=== PATIENT | male | born 2000 | race Caucasian/White ===

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

== ENCOUNTER 2023-04-07 00:43 | Emergency (ER) | payer OTHER ==
[~2023-04-07] VITALS: Ht 190.5 cm; Wt 83.9 kg
[2023-04-07] MEDS ORDERED: FAMOTIDINE 20 MG TABLET ONE (01:53)
[2023-04-07] MEDS ORDERED: EPINEPHRINE 1:10,000 1 MG/10 ML DISP.SYRIN ONE (01:53)
[2023-04-07] MEDS ORDERED: predniSONE 20 MG TABLET ONE (01:54)
[2023-04-07] MEDS ORDERED: diphenhydrAMINE 25 MG CAP PO ONE ×2 (01:54→02:00)
[2023-04-07] MEDS ORDERED: EPIN0.3P3 IM (01:58)
[2023-04-07] MEDS ORDERED: DIPH25CA83 PO (01:58)
[2023-04-07] MEDS ORDERED: PRED20TA PO (01:58)
[2023-04-07] MEDS ORDERED: FAMO20TA8 PO (01:58)
[2023-04-07] MEDS ORDERED: FAMOTIDINE 20 MG TABLET PO ONE (02:00)
[2023-04-07] MEDS ORDERED: predniSONE 20 MG TABLET PO ONE (02:00)
[2023-04-07] MEDS ORDERED: EPINEPHRINE 1 MG/1 ML 30 ML VIAL SQ ONE (02:00)
[2023-04-07 02:08] VITALS: BP 118/68; O2SAT 97
== END 2023-04-07 02:21 | disposition home or self-care (01) ==
LOC: ER 00:47
DX: T78.2XXA Anaphylactic shock, unspecified, initial encounter (principal); J45.909 Unspecified asthma, uncomplicated; Z79.899 Other long term (current) drug therapy
CPT/HCPCS: 99284; 96372; Q0163; J7512; J0171; A4606; A4663